=== PATIENT | female | born 1990 | race African-American/Black ===

== ENCOUNTER 2018-02-22 13:20 | Emergency (ER) | payer OTHER, SELFPAY ==
[2018-02-22] MEDS ORDERED: Ibuprofen 200 MG TAB ONE (13:43)
[2018-02-22] MEDS ORDERED: Acetaminophen 500 MG TAB ONE (13:43)
== END 2018-02-22 14:42 | disposition home or self-care (01) ==
LOC: ERS 13:20
DX: J02.0 Streptococcal pharyngitis (principal); F41.9 Anxiety disorder, unspecified
CPT/HCPCS: 87430; 99283

== ENCOUNTER 2024-04-15 21:06 | Emergency (ER) | payer BC, SELFPAY ==
[2024-04-16] MEDS ORDERED: Proparacaine 0.5% Opth 15 ML BOT ONE (00:18)
[2024-04-16] MEDS ORDERED: Fluorescein Opthalmic Strip ONE (00:18)
== END 2024-04-16 00:47 | disposition home or self-care (01) ==
LOC: ERS 21:06
DX: S05.92XA Unspecified injury of left eye and orbit, initial encounter (principal); X58.XXXA Exposure to other specified factors, initial encounter
CPT/HCPCS: 99283